=== PATIENT | male | born 1995 | race African-American/Black ===

== ENCOUNTER 2018-12-27 12:08 | Emergency (ER) | payer SELFPAY ==
[2018-12-27] MEDS ORDERED: Albuterol/Ipratropium 3.0-0.5 MG/3 ML Neb Soln NEB ONE (13:25)
--- NOTE | 2018-12-27 13:27 | EDM.PDOC ---
ED HPI GENERAL MEDICAL PROBLEM - General Chief Complaint: Respiratory Problem Stated Complaint: COUGH, CANNOT EAT X 3 DAYS, POSS FEVER Time Seen by Provider: 12/27/18 13:23 - History of Present Illness INITIAL COMMENTS - FREE TEXT/NARRATIVE: HISTORY AND PHYSICAL: History of present illness: Patient's 23-year-old black male with no significant past medical history presents with certain of cough cold symptoms congestion worse over the last 3 days he states that also tactile fever. Review of systems: As per history of present illness and below otherwise all systems reviewed and negative. Past medical history: As per history of present illness and as reviewed below otherwise noncontributory. Surgical history: As per history of present illness and as reviewed below otherwise noncontributory. Social history: No reported history of drug or alcohol abuse. Family history: As per history of present illness and as reviewed below otherwise noncontributory. Physical exam: HEENT: Atraumatic, normocephalic, pupils reactive, negative for conjunctival pallor or scleral icterus, mucous membranes moist, throat clear, neck supple, nontender, trachea midline. Lungs: Coarse Bilaterally breath sounds equal bilaterally, chest nontender. Heart: S1S2, regular, negative for clicks, rubs, or JVD. Abdomen: Soft, nondistended, nontender. Negative for masses or hepatosplenomegaly. Negative for costovertebral tenderness. Pelvis: Stable nontender. Genitourinary: Deferred. Rectal: Deferred. Extremities: Atraumatic, negative for cords or calf pain. Neurovascular unremarkable. Neuro: Awake, alert, oriented. Cranial nerves II through XII unremarkable. Cerebellum unremarkable. Motor and sensory unremarkable throughout. Exam nonfocal. Diagnostics: None Therapeutics: Albuterol ipratropium nebulizer Impression: #1 tracheobronchitis Definitive disposition and diagnosis as appropriate pending reevaluation and review of above. ED ROS GENERAL - Review of Systems Review Of Systems: ROS reveals no pertinent complaints other than HPI. ED EXAM, GENERAL - Physical Exam Exam: See Below (The dictation) Course - Orders/Labs/Meds Orders: Active Orders 24 hr Category Date Time Status RT Aerosol Therapy [RC] ASDIRECTED Care 12/27/18 13:25 Active Albuterol/Ipratropium [DuoNeb 3.0-0.5 MG/3 ML] Med 12/27/18 13:25 Once 3 ml NEB ONETIME ONE Departure - Departure Time of Disposition: 13:27 Disposition: Home, Self-Care 01 Condition: Good Clinical Impression: Tracheobronchitis - Discharge Information Referrals: PCP,None [Primary Care Provider] - Additional Instructions: The following information is given to patients seen in the emergency department who are being discharged to home. This information is to outline your options for follow-up care. We provide all patients seen in our emergency department with a follow-up referral. The need for follow-up, as well as the timing and circumstances, are variable depending upon the specifics of your emergency department visit. If you don't have a primary care physician on staff, we will provide you with a referral. We always advise you to contact your personal physician following an emergency department visit to inform them of the circumstance of the visit and for follow-up with them and/or the need for any referrals to a consulting specialist. The emergency department will also refer you to a specialist when appropriate. This referral assures that you have the opportunity for followup care with a specialist. All of these measure are taken in an effort to provide you with optimal care, which includes your followup. Under all circumstances we always encourage you to contact your private physician who remains a resource for coordinating your care. When calling for followup care, please make the office aware that this follow-up is from your recent emergency room visit. If for any reason you are refused follow-up, please contact the [facility] emergency department at and asked to speak to the emergency department charge nurse. Augmentin and albuterol as prescribed follow-up primary medical doctor as needed as discussed Motrin/Tylenol as directed - My Orders Last 24 Hours: My Active Orders 12/27/18 13:25 RT Aerosol Therapy [RC] ASDIRECTED Albuterol/Ipratropium [DuoNeb 3.0-0.5 MG/3 ML] 3 ml NEB ONETIME ONE - Assessment/Plan Last 24 Hours: My Active Orders 12/27/18 13:25 RT Aerosol Therapy [RC] ASDIRECTED Albuterol/Ipratropium [DuoNeb 3.0-0.5 MG/3 ML] 3 ml NEB ONETIME ONE
== END 2018-12-27 14:25 | disposition home or self-care (01) ==
LOC: MW.ED 12:08
DX: J40 Bronchitis, not specified as acute or chronic (principal)
CPT/HCPCS: 94640; 99282; 99283-25; J7620-GY

== ENCOUNTER 2021-01-31 06:46 | Emergency (ER) | payer SELFPAY ==
[2021-01-31] MEDS ORDERED: Dexamethasone 10 MG/ML SDV IVPUSH ONE (07:11)
--- NOTE | 2021-01-31 07:11 | EDM.PDOC ---
ED HPI GENERAL MEDICAL PROBLEM - General Chief Complaint: ENT Problem Stated Complaint: TONSILS ARE SWOLLEN Time Seen by Provider: 01/31/21 07:04 - History of Present Illness INITIAL COMMENTS - FREE TEXT/NARRATIVE: 25-year-old male presenting with sore throat and sensation that his uvula is swollen since waking up this morning. He went to bed last night and felt normal. He does have some muscle aches but works in the [employer] and this is not unusual for him. No fever no cough no shortness of breath no chest pain he feels like his uvula hits the back of his throat and triggers his gag reflex. However no nausea or vomiting. No headache no neck stiffness. Symptoms constant without radiation or other associated symptoms. Posterior Throat Pain Score (Numeric/FACES): 2 - Related Data Allergies Allergy/AdvReac Type Severity Reaction Status Date / Time No Known Allergies Allergy Verified 01/31/21 06:55 Home Meds: Home Meds . [No Known Home Meds] 12/27/18 [History] Past Medical History - Past Health History Medical/Surgical History: Denies Medical/Surgical History - Infectious Disease History Infectious Disease History: Reports: None Social & Family History - Family History Family Medical History: No Pertinent Family History - Caffeine Use Caffeine Use: Reports: Soda - Recreational Drug Use Recreational Drug Use: No ED ROS GENERAL - Review of Systems Review Of Systems: See Below Free Text/Narrative/Comment: General: No fever. Skin: No rash. Eyes: No vision problems. ENT: Per HPI Neck: No neck stiffness. Respiratory: No shortness of breath. Cardiac: No chest pain. Gastrointestinal: No nausea, vomiting or abdominal pain. Urinary: No dysuria. Musculoskeletal: No myalgias/arthralgias. Neurologic: No headache. ED EXAM, GENERAL - Physical Exam Exam: See Below Free Text/Narrative:: General Appearance: No acute distress, appears comfortable Skin: No rash HEENT: Normocephalic/atraumatic, sclera anicteric, mucous membranes moist, bilateral tonsillar enlargement without exudate uvula is enlarged and edematous, no pseudomembranes, no submental or sublingual swelling, no asymmetric posterior oropharyngeal swelling, no trismus Neck: Normal range of motion Chest and Lungs: Normal work of breathing Cardiovascular: Intact distal perfusion normal work of breathing Musculoskeletal: No edema or tenderness Neurologic: Awake, alert, no obvious deficits, moving all extremities Psychiatric: Appropriate, cooperative Course - Vital Signs Last Recorded V/S: Last Vital Signs Temp 96.8 F L 01/31/21 06:55 Pulse 95 01/31/21 06:55 Resp 18 01/31/21 06:55 BP 125/65 01/31/21 06:55 Pulse Ox 98 01/31/21 06:55 - Orders/Labs/Meds Labs: Laboratory Tests 01/31/21 01/31/21 Range/Units 06:50 07:30 SARS-CoV-2 RNA (YURIDIA) POSITIVE H (NEGATIVE) Group A Strep (PCR) NOT DETECTED (NOT DETECT) Meds: Medications Discontinued Medications Generic Name Dose Route Start Last Admin Trade Name Freq PRN Reason Stop Dose Admin Dexamethasone 10 mg 01/31/21 07:11 01/31/21 07:18 Dexamethasone 10 Mg/Ml Sdv IVPUSH 01/31/21 07:12 10 mg ONETIME ONE Administration Departure - Departure Time of Disposition: 08:42 Disposition: Home, Self-Care 01 Condition: Good Clinical Impression: COVID-19, Uvulitis - Discharge Information *PRESCRIPTION DRUG MONITORING PROGRAM REVIEWED*: Not Applicable *COPY OF PRESCRIPTION DRUG MONITORING REPORT IN PATIENT GIL: Not Applicable Instructions: COVID-19 Frequently Asked Questions, 10 Things You Can Do to Jeannie ge Your COVID-19 Symptoms at Home - [facility]AMED [facility] (10/14/2020), Uvulitis Forms: ED Department Discharge Additional Instructions: The steroid that you were given today should help your throat symptoms some. Over the coming days I would not be surprised if you developed more muscle aches fatigue cough and other symptoms of COVID-19. You will be contacted regarding your antibody infusion. If you have more trouble breathing or any other new symptoms that concern you please call your doctor or return to the ER. The following information is given to patients seen in the emergency department who are being discharged to home. This information is to outline your options for follow-up care. We provide all patients seen in our emergency department with a follow-up referral. The need for follow-up, as well as the timing and circumstances, are variable depending upon the specifics of your emergency department visit. If you don't have a primary care physician on staff, we will provide you with a referral. We always advise you to contact your personal physician following an emergency department visit to inform them of the circumstance of the visit and for follow-up with them and/or the need for any referrals to a consulting specialist. The emergency department will also refer you to a specialist when appropriate. This referral assures that you have the opportunity for follow-up care with a specialist. All of these measure are taken in an effort to provide you with optimal care, which includes your follow-up. Under all circumstances we always encourage you to contact your private physician who remains a resource for coordinating your care. When calling for follow-up care, please make the office aware that this follow-up is from your recent emergency room visit. If for any reason you are refused follow-up, please contact the [facility] Emergency Department at and asked to speak to the emergency department charge nurse. Sepsis Event Note (ED) - Focused Exam Vital Signs: Vital Signs Temp Pulse Resp BP Pulse Ox 01/31/21 06:55 96.8 F L 95 18 125/65 98 - Assessment/Plan Assessment:: 25-year-old male presenting with signs and symptoms most consistent with a viral uvulitis. Strep pharyngitis is possible though felt less likely strep swab is pending and was collected prior to my evaluation. 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 No findings of meningitis or encephalitis. Patient will be given Decadron. And if strep swab positive will obviously be given antibiotics. No cough or fever no symptoms that suggest Covid. 0735: Pt reported to nursing that he had a recent COVID-19 exposure. For this reason Covid test added. 0830: Pt is COVID-19 positive. This is likely a virus causing his symptoms. This was discussed with the patient in full. He is interested in the antibody infusion relevant orders and paperwork were filled out by myself. The need to quarantine was discussed and understood. Return precaution discussed and understood.
== END 2021-01-31 09:00 | disposition home or self-care (01) ==
LOC: MW.ED 06:46
DX: U07.1 COVID-19 (principal); K12.2 Cellulitis and abscess of mouth
CPT/HCPCS: 87635; 87651; 96374; 99283; J1100; U0002

== ENCOUNTER 2022-01-08 10:47 | Emergency (ER) | payer SELFPAY ==
[2022-01-08] MEDS ORDERED: Ondansetron 4 MG Tab.DIS PO ONE (12:25)
[2022-01-08] MEDS ORDERED: HYDROmorphone 2 MG/ML Syringe IM ONE (12:25)
[2022-01-08] MEDS ORDERED: Sodium Chloride 0.9% 1,000 ML IV ONE (13:29)
[2022-01-08] MEDS ORDERED: Ondansetron 4 MG/2 ML SDV IVPUSH ONE (13:29)
== END 2022-01-08 15:26 | disposition home or self-care (01) ==
LOC: MW.ED 10:47
DX: K64.5 Perianal venous thrombosis (principal)
CPT/HCPCS: 96361; 96372; 96374; 99283; A9270; J1170; J2405; J7030

== ENCOUNTER 2022-10-29 11:39 | Emergency (ER) | payer SELFPAY | END 2022-10-29 12:44 | disposition home or self-care (01) | LOC: MW.ED 11:39 | DX: Z76.0 Encounter for issue of repeat prescription (principal) | CPT/HCPCS: 99281; 99283 ==

== ENCOUNTER 2023-03-24 06:49 | Emergency (ER) | payer BC | END 2023-03-24 07:20 | disposition home or self-care (01) | LOC: MW.ED 06:49 | DX: H10.9 Unspecified conjunctivitis (principal) | CPT/HCPCS: 99282 ==

== ENCOUNTER 2024-08-11 09:38 | Emergency (ER) | payer BC ==
[2024-08-11] MEDS: Albuterol 0.083% 2.5 MG/3 ML Neb Soln NEB ONE (10:21)
[2024-08-11] MEDS: cefTRIAXone 1 GM in Lidocaine 1% 2.1 ML IM ONE (10:30)
== END 2024-08-11 12:14 | disposition home or self-care (01) ==
LOC: MW.ED 09:38
DX: J40 Bronchitis, not specified as acute or chronic (principal); H66.93 Otitis media, unspecified, bilateral; Z75.3 Unavailability and inaccessibility of health-care facilities; Z79.51 Long term (current) use of inhaled steroids; Z79.899 Other long term (current) drug therapy
CPT/HCPCS: 71045; 87426; 87651; 94640; 96372; 99285; J0696; J1100; J2003; J7613; 99283; A9270-GY

== ENCOUNTER 2024-09-08 15:19 | Emergency (ER) | payer BC ==
[2024-09-08 16:32] LABS: APPEARANCE,URINE CLOUDY; COLOR,URINE YELLOW; GLUCOSE,URINE NEGATIVE (NEGATIVE); KETONES,URINE NEGATIVE (NEGATIVE); LEUKOCYTE ESTERASE,URINE NEGATIVE (NEGATIVE); NITRITE,URINE NEGATIVE (NEGATIVE); OCCULT BLOOD,URINE LARGE (NEGATIVE); PROTEIN,URINE TRACE mg/dL (NEGATIVE)
[2024-09-08 17:03] LABS: BILIRUBIN,URINE SMALL (NEGATIVE)
[2024-09-08 17:14] LABS: RBC,URINE TOO NUMEROUS TO CT (0-2/HPF); WBC,URINE 0-2 (0-5/HPF)
[2024-09-08 17:15] LABS: BACTERIA,URINE NOT SEEN (NEGATIVE); EPITHELIAL CELLS,URINE RARE (NONE-FEW)
[2024-09-08 18:02] LABS: C. TRACHOMATIS BY PCR NOT DETECTED; N. GONORRHOEAE BY PCR NOT DETECTED
[2024-09-08] MEDS: Sodium Chloride 0.9% 1,000 ML IV ONE (19:19)
[2024-09-08] MEDS: Ketorolac 30 MG/ML SDV IVPUSH ONE (19:19)
[2024-09-08 19:27] LABS: BASOPHILS ABSOLUTE AUTO 0.01 K/uL (0.00-0.20); BASOPHILS PERCENT AUTO 0.1 % (0.0-1.0); EOSINOPHILS ABSOLUTE AUTO 0.03 K/uL (0.00-0.45); EOSINOPHILS PERCENT AUTO 0.3 % (0.0-6.0); HEMATOCRIT 40.7 % (42.0-52.0); HEMOGLOBIN 13.5 g/dL (14.0-18.0); IMMATURE GRAN ABSOLUTE AUTO 0.04 K/uL (0.00-0.05); IMMATURE GRAN PERCENT AUTO 0.4 % (0.0-0.4); LYMPHOCYTES ABSOLUTE AUTO 1.99 K/uL (1.00-4.80); LYMPHOCYTES PERCENT AUTO 18.8 % (24.0-44.0); MEAN CORPUSCULAR HEMOGLOBIN 30.8 pg (28.0-32.0); MEAN CORPUSCULAR HGB CONC 33.2 g/dL (32.0-36.0); MEAN CORPUSCULAR VOLUME 92.9 fL (83.0-99.0); MEAN PLATELET VOLUME 10.8 fL (9.4-12.4); MONOCYTES ABSOLUTE AUTO 0.72 K/uL (0.00-0.80); MONOCYTES PERCENT AUTO 6.8 % (0.0-8.0); NEUTROPHILS ABSOLUTE AUTO 7.81 K/uL (1.80-7.70); NEUTROPHILS PERCENT AUTO 73.6 % (41.0-71.0); PLATELET COUNT,PLT 214 K/uL (150-400); RED BLOOD CELL COUNT 4.38 M/uL (4.52-5.90)
[2024-09-08] MEDS: Iopamidol 755 MG/ML 500 ML Multipack Bottle IVPUSH STA (19:42)
[2024-09-08 19:57] LABS: A/G RATIO 0.9 (0.9-1.6); ALBUMIN 3.7 g/dL (3.4-5.0); BILIRUBIN TOTAL 0.3 mg/dL (0.2-1.0); CALCIUM 8.5 mg/dL (8.5-10.1); CARBON DIOXIDE,CO2 27.8 mmol/L (21.0-32.0); CREATININE 1.2 mg/dL (0.8-1.3); EST CRCL DRUG DOSING (CG) 94.63 mL/min; PROTEIN TOTAL,TP 7.7 g/dL (6.4-8.2)
== END 2024-09-08 21:10 | disposition home or self-care (01) ==
LOC: MW.ED 15:19
DX: R31.9 Hematuria, unspecified (principal); Z75.3 Unavailability and inaccessibility of health-care facilities; Z79.51 Long term (current) use of inhaled steroids; Z79.899 Other long term (current) drug therapy
CPT/HCPCS: 36415; 74177; 80053; 81001; 83690; 85025; 87491; 87591; 99284; J7030; Q9967; 99283